=== PATIENT | male | born 1970 | race Caucasian/White ===

== ENCOUNTER 2017-05-06 11:38 | Inpatient (IN) | payer MEDICAID ==
[~2017-05-06] VITALS: Ht 172.7 cm; Wt 95.5 kg
[~2017-05-06 11:38] MED LIST: BENZTROPINE; CELEBREX; CLONAZEPAM; HALO10 PO; HALOPERIDOL; OMEP20 PO; PAROXETINE; TRIAMTERENE HCTZ
[2017-05-06 12:53] LABS: BASOPHILS % (AUTO) 0.4 % (0.0-2.0); EOSINOPHILS % (AUTO) 2.4 % (1.0-6.0); HEMATOCRIT 42.7 % (41-53); HEMOGLOBIN 14.6 g/dL (13.5-17.5); LYMPHOCYTES # (AUTO) 1.4 K/uL (1.0-4.8); LYMPHOCYTES % (AUTO) 13.5 % (22.0-44.0); MEAN CORPUSCULAR HEMOGLOBIN 33.7 pg (26.0-34.0); MEAN CORPUSCULAR HGB CONC 34.2 G/dL (31.0-37.0); MEAN CORPUSCULAR VOLUME 98 fL (80-100); MONOCYTES # (AUTO) 0.6 K/uL (0.1-1.0); MONOCYTES % (AUTO) 6.2 % (2.0-9.0); NEUTROPHILS # (AUTO) 7.9 K/uL (1.8-7.7); NEUTROPHILS % (AUTO) 77.5 % (40.0-70.0); PLATELET COUNT (AUTO) 265 K/uL (150-450); RED BLOOD CELL COUNT(AUTO) 4.34 MIL/uL (4.50-5.90)
[2017-05-06 13:01] LABS: ANION GAP 6 mmol/L (8-16); CALCIUM, TOTAL 8.9 mg/dL (8.8-10.5); CARBON DIOXIDE 30 mmol/L (22-29); CHLORIDE 101 mmol/L (98-107); CREATININE 0.78 mg/dL (0.60-1.30); GLOMERULAR FILTR. RATE CALC > 60 mL/min (>60); GLUCOSE,RANDOM 141 mg/dL (70-110); POTASSIUM 3.7 mmol/L (3.5-5.1); SODIUM SERUM 137 mmol/L (136-145); UREA NITROGEN, BLOOD 12 mg/dL (7-18)
[2017-05-06 13:08] LABS: ALANINE AMINOTRANSFERASE 26 U/L (12-78); ALBUMIN 3.4 g/dL (3.4-5.0); ALKALINE PHOSPHATASE 83 U/L (46-116); ASPARTATE AMINOTRANSFERASE 24 U/L (15-37); BILIRUBIN,TOTAL 0.4 mg/dL (0.1-1.0)
[2017-05-06] MEDS ORDERED: LORazepam 2 MG/ML VIAL IM ONE (13:30)
[2017-05-06] MEDS ORDERED: HALOPERIDOL LACTATE 5 MG/ML VIAL IM ONE (13:30)
[2017-05-06] MEDS ORDERED: DiphenhydrAMINE HCL 50 MG/ML VIAL IM ONE (13:30)
[2017-05-06] MEDS ORDERED: LORazepam 2 MG TABLET PO ONE (14:00)
[2017-05-06 14:32] LABS: AMPHET/METH SCREEN,URINE NEGATIVE (NEGATIVE); BARBITURATE SCREEN, URINE NEGATIVE (NEGATIVE); BENZODIAZEPINES SCREEN,URINE NEGATIVE (NEGATIVE); CANNABINOID SCREEN,URINE NEGATIVE (NEGATIVE); COCAINE SCREEN,URINE NEGATIVE (NEGATIVE); METHADONE SCREEN, URINE NEGATIVE (NEGATIVE); OPIATE SCREEN,URINE NEGATIVE (NEGATIVE)
[2017-05-06 14:33] LABS: PHENCYCLIDINE SCREEN,URINE NEGATIVE (NEGATIVE)
[2017-05-06] MEDS ORDERED: HALOPERIDOL 5 MG TABLET PO PRN (17:15)
[2017-05-06] MEDS ORDERED: ZOLPIDEM TARTRATE 10 MG TABLET PO PRN (17:15)
[2017-05-06 17:20] VITALS: BP 120/73
[2017-05-06] MEDS ORDERED: INFLUENZA VIRUS VACCINE QVS 2017-18 (3YR+)/PF 60 MCG/0.5 ML SYRINGE IM ONE (17:45)
[2017-05-07 06:14] VITALS: BP 122/81
[2017-05-07 08:36] VITALS: BP 112/74
[2017-05-07 08:45] LABS: CHOL/HDL RATIO 5.1 (4.2-7.3)
[2017-05-07] MEDS: CEPHALEXIN MONOHYDRATE 500 MG CAPSULE PO SCH ×3 (08:48→16:44)
[2017-05-07] MEDS: LORazepam 2 MG TABLET PO PRN ×2 (08:48→16:44)
[2017-05-07] MEDS: SULFAMETHOX/TRIMETH DS 800-160 MG/TABLET PO SCH ×2 (08:49→16:43)
[2017-05-07] MEDS: BACITRACIN 28.4 GM OINTMENT TP SCH ×2 (08:49→16:57)
[2017-05-07] MEDS: OMEPRAZOLE 20 MG CAPSULE PO SCH (08:49)
[2017-05-07 16:00] VITALS: BP 120/69
[2017-05-07] MEDS ORDERED: ACETAMINOPHEN 325 MG TABLET PO PRN (16:15)
[2017-05-07] MEDS: HALOPERIDOL 5 MG TABLET PO SCH (16:43)
[2017-05-08 06:29] VITALS: BP 107/68
[2017-05-08] MEDS: SULFAMETHOX/TRIMETH DS 800-160 MG/TABLET PO SCH ×2 (08:28→16:46)
[2017-05-08] MEDS: OMEPRAZOLE 20 MG CAPSULE PO SCH (08:28)
[2017-05-08] MEDS: HALOPERIDOL 5 MG TABLET PO SCH ×2 (08:28→16:57)
[2017-05-08] MEDS: CEPHALEXIN MONOHYDRATE 500 MG CAPSULE PO SCH ×3 (08:28→16:46)
[2017-05-08] MEDS: BACITRACIN 28.4 GM OINTMENT TP SCH ×2 (08:29→16:47)
[2017-05-08 09:04] VITALS: BP 131/77
[2017-05-08 10:09] LABS: APPEARANCE,URINE CLEAR (CLEAR); BILIRUBIN,URINE NEGATIVE (NEGATIVE); GLUCOSE, URINE (UA) NEGATIVE (NEGATIVE); KETONES,URINE NEGATIVE (NEGATIVE); LEUKOCYTE ESTERASE ,URINE NEGATIVE (NEGATIVE); NITRATE,URINE NEGATIVE (NEGATIVE); OCCULT BLOOD,URINE NEGATIVE (NEGATIVE); PROTEIN,URINE NEGATIVE (NEGATIVE)
[2017-05-08] MEDS ORDERED: PERMETHRIN 5% 60 GM CREAM TP ONE (11:00)
[2017-05-08 16:19] VITALS: BP 127/67
[2017-05-08] MEDS: LORazepam 2 MG TABLET PO PRN (16:46)
[2017-05-09 06:44] VITALS: BP 113/62
[2017-05-09] MEDS: HALOPERIDOL 5 MG TABLET PO SCH ×3 (09:00→17:00)
[2017-05-09] MEDS: OMEPRAZOLE 20 MG CAPSULE PO SCH ×2 (09:00→09:18)
[2017-05-09] MEDS: CEPHALEXIN MONOHYDRATE 500 MG CAPSULE PO SCH ×3 (09:18→17:12)
[2017-05-09] MEDS: SULFAMETHOX/TRIMETH DS 800-160 MG/TABLET PO SCH ×2 (09:18→17:12)
[2017-05-09] MEDS: BACITRACIN 28.4 GM OINTMENT TP SCH ×2 (09:19→17:13)
[2017-05-09 10:27] VITALS: BP 109/70
[2017-05-09 16:33] VITALS: BP 119/71
[2017-05-10 06:42] VITALS: BP 115/85
[2017-05-10 08:00] VITALS: BP 130/71
[2017-05-10] MEDS: HALOPERIDOL 5 MG TABLET PO SCH ×2 (09:00→16:43)
[2017-05-10] MEDS: OMEPRAZOLE 20 MG CAPSULE PO SCH (09:00)
[2017-05-10] MEDS: SULFAMETHOX/TRIMETH DS 800-160 MG/TABLET PO SCH ×2 (09:01→16:42)
[2017-05-10] MEDS: CEPHALEXIN MONOHYDRATE 500 MG CAPSULE PO SCH ×3 (09:01→16:43)
[2017-05-10] MEDS: BACITRACIN 28.4 GM OINTMENT TP SCH ×2 (09:01→16:43)
[2017-05-10] MEDS: LORazepam 2 MG TABLET PO PRN (16:43)
[2017-05-10 16:50] VITALS: BP 118/85
[2017-05-11 07:11] VITALS: BP 114/87
[2017-05-11 07:12] VITALS: BP 106/66
[2017-05-11] MEDS: SULFAMETHOX/TRIMETH DS 800-160 MG/TABLET PO SCH ×2 (08:34→16:53)
[2017-05-11] MEDS: CEPHALEXIN MONOHYDRATE 500 MG CAPSULE PO SCH ×3 (08:34→16:53)
[2017-05-11] MEDS: OMEPRAZOLE 20 MG CAPSULE PO SCH (08:34)
[2017-05-11] MEDS: HALOPERIDOL 5 MG TABLET PO SCH ×2 (08:37→16:53)
[2017-05-11] MEDS: BACITRACIN 28.4 GM OINTMENT TP SCH ×2 (08:38→16:53)
[2017-05-11 09:13] VITALS: BP 120/67
[2017-05-11] MEDS: LORazepam 2 MG TABLET PO PRN (16:53)
[2017-05-11 17:17] VITALS: BP 132/73
[2017-05-12 06:39] VITALS: BP 135/84
[2017-05-12 08:21] VITALS: BP 115/65
[2017-05-12] MEDS: HALOPERIDOL 5 MG TABLET PO SCH ×2 (09:00→16:50)
[2017-05-12] MEDS: BACITRACIN 28.4 GM OINTMENT TP SCH ×2 (09:10→17:01)
[2017-05-12] MEDS: SULFAMETHOX/TRIMETH DS 800-160 MG/TABLET PO SCH ×2 (09:10→16:50)
[2017-05-12] MEDS: OMEPRAZOLE 20 MG CAPSULE PO SCH (09:10)
[2017-05-12] MEDS: LORazepam 2 MG TABLET PO PRN ×2 (09:10→16:51)
[2017-05-12] MEDS: CEPHALEXIN MONOHYDRATE 500 MG CAPSULE PO SCH ×3 (09:10→16:50)
[2017-05-12 16:11] VITALS: BP 111/63
[2017-05-13 06:17] VITALS: BP 117/64
[2017-05-13] MEDS: HALOPERIDOL 5 MG TABLET PO SCH ×2 (09:00→16:50)
[2017-05-13] MEDS: OMEPRAZOLE 20 MG CAPSULE PO SCH (09:23)
[2017-05-13] MEDS: SULFAMETHOX/TRIMETH DS 800-160 MG/TABLET PO SCH ×2 (09:23→16:50)
[2017-05-13] MEDS: LORazepam 2 MG TABLET PO PRN ×2 (09:24→16:50)
[2017-05-13] MEDS: BACITRACIN 28.4 GM OINTMENT TP SCH ×2 (09:24→16:51)
[2017-05-13] MEDS: CEPHALEXIN MONOHYDRATE 500 MG CAPSULE PO SCH ×3 (09:24→16:50)
[2017-05-13 10:03] VITALS: BP_SYST 129
[2017-05-13 17:25] VITALS: BP 122/65
[2017-05-14 06:19] VITALS: BP 133/70
[2017-05-14 08:35] VITALS: BP 134/77
[2017-05-14] MEDS ORDERED: HALOPERIDOL LACTATE 5 MG/ML VIAL IM PRN (09:45)
[2017-05-14] MEDS: HALOPERIDOL 5 MG TABLET PO SCH ×2 (09:48→16:49)
[2017-05-14] MEDS: OMEPRAZOLE 20 MG CAPSULE PO SCH (09:48)
[2017-05-14] MEDS: SULFAMETHOX/TRIMETH DS 800-160 MG/TABLET PO SCH ×2 (09:48→16:49)
[2017-05-14] MEDS: CEPHALEXIN MONOHYDRATE 500 MG CAPSULE PO SCH ×3 (09:48→16:49)
[2017-05-14] MEDS: LORazepam 2 MG TABLET PO PRN (09:48)
[2017-05-14] MEDS: BACITRACIN 28.4 GM OINTMENT TP SCH ×2 (09:49→16:49)
[2017-05-14 13:54] VITALS: BP 109/65
[2017-05-14 16:09] VITALS: BP_SYST 109; BP_SYST 131; BP_DIAS 62; BP_DIAS 65
[2017-05-15 06:55] VITALS: BP 126/77
[2017-05-15 08:14] VITALS: BP 108/83
[2017-05-15] MEDS: SULFAMETHOX/TRIMETH DS 800-160 MG/TABLET PO SCH ×2 (09:41→17:26)
[2017-05-15] MEDS: LORazepam 2 MG TABLET PO PRN ×2 (09:41→17:26)
[2017-05-15] MEDS: OMEPRAZOLE 20 MG CAPSULE PO SCH (09:42)
[2017-05-15] MEDS: HALOPERIDOL 5 MG TABLET PO SCH ×2 (09:42→17:26)
[2017-05-15] MEDS: CEPHALEXIN MONOHYDRATE 500 MG CAPSULE PO SCH ×3 (09:42→17:26)
[2017-05-15] MEDS: BACITRACIN 28.4 GM OINTMENT TP SCH ×2 (09:43→17:26)
[2017-05-15 12:10] VITALS: BP 115/76
[2017-05-15 17:25] VITALS: BP 117/72
[2017-05-15] MEDS: IBUPROFEN 400 MG TABLET PO PRN (17:27)
[2017-05-15 18:27] VITALS: BP 112/69
[2017-05-16 07:08] VITALS: BP 110/70
[2017-05-16 09:07] VITALS: BP 118/70
[2017-05-16] MEDS: BACITRACIN 28.4 GM OINTMENT TP SCH ×2 (09:17→17:05)
[2017-05-16] MEDS: OMEPRAZOLE 20 MG CAPSULE PO SCH (09:18)
[2017-05-16] MEDS: CEPHALEXIN MONOHYDRATE 500 MG CAPSULE PO SCH ×3 (09:18→17:06)
[2017-05-16] MEDS: HALOPERIDOL 5 MG TABLET PO SCH ×2 (09:18→17:06)
[2017-05-16] MEDS: SULFAMETHOX/TRIMETH DS 800-160 MG/TABLET PO SCH ×2 (09:18→17:05)
[2017-05-16 16:18] VITALS: BP 141/78
[2017-05-16] MEDS: LORazepam 2 MG TABLET PO PRN (17:06)
[2017-05-17 01:21] VITALS: BP 104/61
[2017-05-17 08:19] VITALS: BP 123/68
[2017-05-17] MEDS: BACITRACIN 28.4 GM OINTMENT TP SCH ×2 (09:16→16:16)
[2017-05-17] MEDS: HALOPERIDOL 5 MG TABLET PO SCH ×2 (09:16→16:16)
[2017-05-17] MEDS: OMEPRAZOLE 20 MG CAPSULE PO SCH (09:16)
[2017-05-17 16:12] VITALS: BP 123/64
[2017-05-17] MEDS: LORazepam 2 MG TABLET PO PRN (16:16)
[2017-05-18 06:37] VITALS: BP 130/77
[2017-05-18 08:00] VITALS: BP 125/71
[2017-05-18] MEDS: OMEPRAZOLE 20 MG CAPSULE PO SCH (09:00)
[2017-05-18] MEDS: HALOPERIDOL 5 MG TABLET PO SCH ×2 (09:01→16:16)
[2017-05-18] MEDS: BACITRACIN 28.4 GM OINTMENT TP SCH ×2 (09:01→16:16)
[2017-05-18] MEDS: LORazepam 2 MG TABLET PO PRN (09:10)
[2017-05-18 16:30] VITALS: BP 131/71
[2017-05-19 06:32] VITALS: BP 129/72
[2017-05-19 08:09] VITALS: BP 114/68
[2017-05-19] MEDS: BACITRACIN 28.4 GM OINTMENT TP SCH ×2 (08:30→16:30)
[2017-05-19] MEDS: LORazepam 2 MG TABLET PO PRN ×2 (08:31→16:30)
[2017-05-19] MEDS: HALOPERIDOL 5 MG TABLET PO SCH ×2 (08:31→16:30)
[2017-05-19] MEDS: OMEPRAZOLE 20 MG CAPSULE PO SCH (08:31)
[2017-05-19 16:00] VITALS: BP 118/65
[2017-05-20 05:42] VITALS: BP 105/64
[2017-05-20 08:32] VITALS: BP 116/63
[2017-05-20] MEDS: HALOPERIDOL 5 MG TABLET PO SCH ×2 (10:03→17:01)
[2017-05-20] MEDS: OMEPRAZOLE 20 MG CAPSULE PO SCH (10:03)
[2017-05-20] MEDS: BACITRACIN 28.4 GM OINTMENT TP SCH ×2 (10:20→17:01)
[2017-05-20 16:14] VITALS: BP 129/75
[2017-05-20] MEDS: LORazepam 2 MG TABLET PO PRN (17:01)
[2017-05-20] MEDS: IBUPROFEN 400 MG TABLET PO PRN (23:50)
[2017-05-21 00:30] VITALS: BP 128/79
[2017-05-21 08:28] VITALS: BP 112/64
[2017-05-21] MEDS: OMEPRAZOLE 20 MG CAPSULE PO SCH (09:47)
[2017-05-21] MEDS: BACITRACIN 28.4 GM OINTMENT TP SCH ×2 (09:48→16:48)
[2017-05-21] MEDS: HALOPERIDOL 5 MG TABLET PO SCH ×2 (09:48→16:47)
[2017-05-21 16:20] VITALS: BP 133/62
[2017-05-21] MEDS: LORazepam 2 MG TABLET PO PRN (16:47)
[2017-05-21] MEDS: IBUPROFEN 400 MG TABLET PO PRN (21:47)
[2017-05-22 06:21] VITALS: BP 99/58
[2017-05-22 08:03] VITALS: BP 117/63
[2017-05-22] MEDS: HALOPERIDOL 5 MG TABLET PO SCH ×2 (08:48→16:43)
[2017-05-22] MEDS: OMEPRAZOLE 20 MG CAPSULE PO SCH (08:48)
[2017-05-22] MEDS: LORazepam 2 MG TABLET PO PRN ×2 (08:48→16:43)
[2017-05-22] MEDS: BACITRACIN 28.4 GM OINTMENT TP SCH ×2 (09:00→16:43)
[2017-05-22 16:00] VITALS: BP 110/64
[2017-05-23 05:00] VITALS: BP 113/69
[2017-05-23 08:00] VITALS: BP 119/67
[2017-05-23] MEDS: HALOPERIDOL 5 MG TABLET PO SCH ×2 (09:25→16:45)
[2017-05-23] MEDS: BACITRACIN 28.4 GM OINTMENT TP SCH ×2 (09:26→16:45)
[2017-05-23] MEDS: OMEPRAZOLE 20 MG CAPSULE PO SCH (09:26)
[2017-05-23] MEDS: LORazepam 2 MG TABLET PO PRN ×2 (09:26→16:45)
[2017-05-23 16:11] VITALS: BP 115/72
[2017-05-24 05:37] VITALS: BP 110/62
[2017-05-24 08:10] VITALS: BP 117/73
[2017-05-24] MEDS: HALOPERIDOL 5 MG TABLET PO SCH ×2 (08:52→16:31)
[2017-05-24] MEDS: BACITRACIN 28.4 GM OINTMENT TP SCH ×2 (08:52→16:31)
[2017-05-24] MEDS: OMEPRAZOLE 20 MG CAPSULE PO SCH (08:52)
[2017-05-24 16:43] VITALS: BP 118/69
[2017-05-25 01:28] VITALS: BP 130/95
[2017-05-25] MEDS: IBUPROFEN 400 MG TABLET PO PRN (05:43)
[2017-05-25] MEDS: BACITRACIN 28.4 GM OINTMENT TP SCH (08:15)
[2017-05-25] MEDS: HALOPERIDOL 5 MG TABLET PO SCH (08:15)
[2017-05-25] MEDS: OMEPRAZOLE 20 MG CAPSULE PO SCH (08:17)
[2017-05-25 08:21] VITALS: BP 112/61
== END 2017-05-25 09:50 | disposition home or self-care (01) | DRG 750 ==
LOC: EMS 11:39 → B3A 15:09
PROVIDERS: ADMIT Psychiatry & Neurology Child & Adolescent Psychiatry; ATTEND Psychiatry & Neurology Child & Adolescent Psychiatry
DX: F20.0 Paranoid schizophrenia (principal); L03.90 Cellulitis, unspecified; G47.30 Sleep apnea, unspecified; K21.9 Gastro-esophageal reflux disease without esophagitis; Z87.891 Personal history of nicotine dependence; Z91.83 Wandering in diseases classified elsewhere; Z28.21 Immunization not carried out because of patient refusal
CPT/HCPCS: 83036; 90471; 99285; G0480; J1200; J1630; J2060

== ENCOUNTER 2019-05-29 09:15 | Emergency (ER) | payer MEDICAID, OTHER ==
[~2019-05-29] VITALS: Ht 172.7 cm; Wt 94.5 kg
[~2019-05-29 09:15] MED LIST changes: -BENZTROPINE; -CELEBREX; -CLONAZEPAM; -HALOPERIDOL; -OMEP20 PO; -PAROXETINE; -TRIAMTERENE HCTZ
[2019-05-29] MEDS ORDERED: DIVA-78 PO (09:53)
[2019-05-29] MEDS ORDERED: DOXY100C PO (09:53)
[2019-05-29] MEDS ORDERED: CLOZ100 PO (09:53)
[2019-05-29] MEDS ORDERED: LORA-1000 PO (09:53)
[2019-05-29] MEDS ORDERED: LIDOCAINE 1% 10 ML VIAL INJ ONE (10:30)
[2019-05-29] MEDS ORDERED: LIDOCAINE/PF 1% 2 ML VIAL IM ONE (10:30)
[2019-05-29] MEDS ORDERED: POVIDONE-IODINE 10% 15 ML SOLUTION UD TP ONE (10:30)
[2019-05-29] MEDS ORDERED: CefTRIAXone SODIUM 1 GM/VIAL IM ONE (10:30)
[2019-05-29 13:33] VITALS: BP 118/76
== END 2019-05-29 13:34 | disposition home or self-care (01) ==
LOC: EMS 09:16
DX: L02.212 Cutaneous abscess of back [any part, except buttock and flank] (principal); F20.9 Schizophrenia, unspecified; F17.210 Nicotine dependence, cigarettes, uncomplicated
CPT/HCPCS: 10060; 96372; 99283; J0696; J3490 ×2

== ENCOUNTER 2019-05-31 17:05 | Emergency (ER) | payer OTHER ==
[~2019-05-31] VITALS: Ht 172.7 cm; Wt 91.0 kg
[~2019-05-31 17:05] MED LIST changes: +CLOZ100 PO; +DIVA-78 PO; +DOXY100C PO; +LORA-1000 PO
[2019-05-31 17:10] VITALS: BP 129/79
== END 2019-05-31 19:20 | disposition home or self-care (01) ==
LOC: EMS 17:12
DX: Z48.01 Encounter for change or removal of surgical wound dressing (principal); R03.0 Elevated blood-pressure reading, without diagnosis of hypertension; F20.9 Schizophrenia, unspecified; F17.210 Nicotine dependence, cigarettes, uncomplicated; G47.00 Insomnia, unspecified; Z79.899 Other long term (current) drug therapy; Z98.890 Other specified postprocedural states